=== PATIENT | female | born 1985 | race African-American/Black ===

== ENCOUNTER 2017-02-23 13:43 | Emergency (ER) | payer OTHER ==
[~2017-02-23 13:43] MED LIST: Iopamidol 370 76% 100 ML VIAL ONE
[2017-02-23] MEDS ORDERED: Acetaminophen 500 MG TAB ONE (14:56)
[2017-02-23 15:08] LABS: #Eosinphils 0.1 thou/uL (0.0-0.7); #Lymphocytes 2.7 thou/uL (1.20-3.40); #Monocytes 0.2 thou/uL (0.11-0.59); #Neutrophils 3.6 thou/uL (1.40-6.50); %Basophils 0.4 % (0.0-1.0); %Eosinophils 2.2 % (0.0-10.0); %Lymphocytes 39.9 % (21.0-51.0); %Monocytes 3.5 % (0.0-10.0); Hematocrit 39.4 % (36.0-47.0); Mean Platelet Volume 8.5 fL (7.4-10.4); Red Blood Cell (RBC) Count 4.77 mill/uL (4.20-5.40); White Blood Cell (WBC) Count 6.7 thou/uL (4.8-10.8)
[2017-02-23 15:26] LABS: ALT (SGPT) 58 U/L (8-55); AST (SGOT) 51 U/L (5-34); Alkaline Phosphatase 109 U/L (40-150); Anion Gap 13 mmol/L (10-20); BUN (Urea Nitrogen) 10 mg/dL (7.0-18.7); Bilirubin, Total 0.4 mg/dL (0.2-1.2); Calc. Creatinine Clearance 0 mL/min (70-130); Calcium 8.8 mg/dL (7.8-10.44); Carbon Dioxide 26 mmol/L (22-29); Chloride 108 mmol/L (98-107); Estimated GFR-MDRD Greater than 90; Globulin 2.7 g/dL (2.4-3.5); Lipase 41 U/L (8-78); Protein, Total 6.5 g/dL (6.0-8.3)
[2017-02-23 15:27] LABS: Troponin I Less than 0.010 ng/mL (< 0.028)
[2017-02-23 15:59] LABS: Bilirubin Negative (Negative); Blood, Urine Negative (Negative); Glucose, Urine (Dipstick) Negative (Negative); Ketone, Urine Trace mg/dL (Negative); Nitrite Positive (Negative); Protein, Urine (Dipstick) Trace mg/dL (Neg-Trace); Urobilinogen 0.2 mg/dL (0.2-1.0)
[2017-02-23 16:06] LABS: Bacteria/HPF 3+ HPF (None Seen)
--- NOTE | 2017-02-23 16:17 | CT ---
CT PULMONARY ANGIOGRAM WITH IV CONTRAST AND 3D POSTPROCESSING 02/23/17 HISTORY: Shortness of breath with posterior thoracic pleuritic pain. FINDINGS: No filling defects are seen in the contrast opacified pulmonary artery vasculature to suggest pulmon marquis embolism. The thoracic aorta is well opacified without aneurysmal dissection. No pleural or karlos cardial effusions are identified. No pneumothoraces, focal areas of consolidation or lung mass/pulmo nary nodules are seen. No acute osseous abnormalities are noted. There is fatty infiltration of the visualized portions of the liver. IMPRESSION: No CT evidence of pulmonary embolism. POS: [facility]
== END 2017-02-23 16:25 | disposition home or self-care (01) ==
LOC: SCSER 13:43
DX: M54.6 Pain in thoracic spine (principal); K76.0 Fatty (change of) liver, not elsewhere classified; E11.9 Type 2 diabetes mellitus without complications; I10 Essential (primary) hypertension; F31.9 Bipolar disorder, unspecified; F20.9 Schizophrenia, unspecified; F17.210 Nicotine dependence, cigarettes, uncomplicated; Z79.84 Long term (current) use of oral hypoglycemic drugs; Z79.899 Other long term (current) drug therapy
CPT/HCPCS: 71275; 80053; 81003; 81015; 82553; 83690; 84484; 85025; 87077; 87086; 87186; 93005

== ENCOUNTER 2017-03-30 18:34 | Emergency (ER) | payer OTHER | END 2017-03-30 19:22 | disposition home or self-care (01) | LOC: SCSER 18:34 | DX: K08.89 Other specified disorders of teeth and supporting structures (principal); E11.9 Type 2 diabetes mellitus without complications; I10 Essential (primary) hypertension; F31.9 Bipolar disorder, unspecified; F20.9 Schizophrenia, unspecified; F17.210 Nicotine dependence, cigarettes, uncomplicated; Z79.899 Other long term (current) drug therapy | CPT/HCPCS: 99406 ==

== ENCOUNTER 2017-07-30 20:23 | Emergency (ER) | payer OTHER | END 2017-07-30 20:45 | disposition home or self-care (01) | LOC: SCSER 20:23 | DX: L25.9 Unspecified contact dermatitis, unspecified cause (principal); E11.9 Type 2 diabetes mellitus without complications; I10 Essential (primary) hypertension; F41.9 Anxiety disorder, unspecified; F20.9 Schizophrenia, unspecified; F17.210 Nicotine dependence, cigarettes, uncomplicated; Z79.84 Long term (current) use of oral hypoglycemic drugs; Z79.899 Other long term (current) drug therapy | CPT/HCPCS: 99282 ==

== ENCOUNTER 2017-08-05 22:15 | Emergency (ER) | payer OTHER ==
[2017-08-05 23:22] LABS: Hemoglobin 12.9 g/dL (12.0-16.0); Mean Corpuscular HGB CONC 33.2 g/dL (32.0-36.0); Mean Corpuscular Hemoglobin 26.5 pg (27.0-31.0); Mean Platelet Volume 8.4 fL (7.4-10.4); Platelet Count 288 thou/uL (130-400); RBC Distribution Width 12.4 % (11.5-14.5); Red Blood Cell (RBC) Count 4.86 mill/uL (4.20-5.40); White Blood Cell (WBC) Count 8.7 thou/uL (4.8-10.8)
[2017-08-05 23:29] LABS: ALT (SGPT) 55 U/L (8-55); AST (SGOT) 22 U/L (5-34); Alkaline Phosphatase 130 U/L (40-150); Anion Gap 16 mmol/L (10-20); BUN (Urea Nitrogen) 10 mg/dL (7.0-18.7); Bilirubin, Total 0.3 mg/dL (0.2-1.2); Calc. Creatinine Clearance 0 mL/min (70-130); Calcium 9.5 mg/dL (7.8-10.44); Carbon Dioxide 23 mmol/L (22-29); Chloride 103 mmol/L (98-107); Estimated GFR-MDRD Greater than 90; Globulin 2.8 g/dL (2.4-3.5); Glucose 211 mg/dL (70-105); Protein, Total 6.8 g/dL (6.0-8.3); Sodium 138 mmol/L (136-145)
[2017-08-05 23:31] LABS: Band 1 % (5-11); Lymphocytes 21 % (21-51); MDiff Complete? YES; Monocytes 2 % (0-10); Neutrophil 76 % (42-75)
[2017-08-05 23:32] LABS: CKMB 0.7 ng/mL (0-6.6); Troponin I Less than 0.010 ng/mL (< 0.028)
== END 2017-08-06 00:30 | disposition home or self-care (01) ==
LOC: SCSER 22:15
DX: E11.65 Type 2 diabetes mellitus with hyperglycemia (principal); I10 Essential (primary) hypertension; F41.9 Anxiety disorder, unspecified; F20.9 Schizophrenia, unspecified; F17.210 Nicotine dependence, cigarettes, uncomplicated; Z71.6 Tobacco abuse counseling; Z79.84 Long term (current) use of oral hypoglycemic drugs; Z79.899 Other long term (current) drug therapy
CPT/HCPCS: 36416; 80053; 82010; 82553; 84484; 85025; 96360; 99406

== ENCOUNTER 2017-11-18 12:31 | Emergency (ER) | payer OTHER ==
[2017-11-18] MEDS ORDERED: Bacitracin Zinc 1 Packet ONE ×2 (13:36→13:38)
== END 2017-11-18 13:44 | disposition home or self-care (01) ==
LOC: SCSER 12:31
DX: B35.0 Tinea barbae and tinea capitis (principal); B35.4 Tinea corporis; L01.00 Impetigo, unspecified; E11.9 Type 2 diabetes mellitus without complications; I10 Essential (primary) hypertension; F41.9 Anxiety disorder, unspecified; F17.210 Nicotine dependence, cigarettes, uncomplicated; Z79.84 Long term (current) use of oral hypoglycemic drugs
CPT/HCPCS: 26010; 87070; 87205

== ENCOUNTER 2017-11-21 21:15 | Emergency (ER) | payer OTHER ==
[2017-11-21 22:16] LABS: Band 2 % (5-11); Eosinophils 1 % (0-10); Hemoglobin 13.7 g/dL (12.0-16.0); Lymphocytes 55 % (21-51); MDiff Complete? YES; Mean Corpuscular HGB CONC 32.1 g/dL (32.0-36.0); Mean Corpuscular Hemoglobin 25.6 pg (27.0-31.0); Mean Corpuscular Volume 79.7 fL (78.0-98.0); Mean Platelet Volume 9.2 fL (7.4-10.4); Monocytes 5 % (0-10); Neutrophil 35 % (42-75); PLT Morphology Comment Appears Adequate; Platelet Count 286 thou/uL (130-400); RBC Distribution Width 12.7 % (11.5-14.5); Reactive Lymphocytes 1 % (0-10); Red Blood Cell (RBC) Count 5.36 mill/uL (4.20-5.40); White Blood Cell (WBC) Count 8.1 thou/uL (4.8-10.8)
[2017-11-21 22:22] LABS: ALT (SGPT) 32 U/L (8-55); AST (SGOT) 21 U/L (5-34); Albumin 4.2 g/dL (3.5-5.0); Alkaline Phosphatase 113 U/L (40-150); Anion Gap 15 mmol/L (10-20); BUN (Urea Nitrogen) 10 mg/dL (7.0-18.7); Bilirubin, Total 0.3 mg/dL (0.2-1.2); CK (CPK) 67 U/L (29-168); Calc. Creatinine Clearance 0 mL/min (70-130); Calcium 9.7 mg/dL (7.8-10.44); Carbon Dioxide 25 mmol/L (22-29); Chloride 103 mmol/L (98-107); Estimated GFR-MDRD Greater than 90; Globulin 2.8 g/dL (2.4-3.5); Glucose 160 mg/dL (70-105); Potassium 3.5 mmol/L (3.5-5.1); Sodium 139 mmol/L (136-145)
[2017-11-21] MEDS ORDERED: Bacitracin Zinc Ointment 30 gm TUBE ONE (22:49)
[2017-11-21] MEDS ORDERED: Acyclovir 400 mg Tablet ONE (22:59)
[2017-11-21 23:20] LABS: Bilirubin Negative (Negative); Blood, Urine Negative (Negative); Clarity Clear (Clear); Glucose, Urine (Dipstick) Negative (Negative); Leukocyte Negative (Negative); Nitrite Negative (Negative); Pregnancy Test - Urine (BHCG) Negative (Negative); Pregu Control Background? CLEAR/WHITE (CLR/WHITE); Pregu Control Bar Appear? YES (CONTROL BAR); Protein, Urine (Dipstick) Negative (Neg-Trace); Urobilinogen 0.2 mg/dL (0.2-1.0); pH, Urine 6.5 (5.0-9.0)
[2017-11-24 22:20] LABS: Chlamydia by PCR Not Detected (NotDetected); GC by PCR Not Detected (NotDetected)
== END 2017-11-22 00:15 | disposition home or self-care (01) ==
LOC: SCSER 21:15
DX: L01.03 Bullous impetigo (principal); E11.9 Type 2 diabetes mellitus without complications; I10 Essential (primary) hypertension; F41.9 Anxiety disorder, unspecified; F20.9 Schizophrenia, unspecified; F17.210 Nicotine dependence, cigarettes, uncomplicated; Z79.899 Other long term (current) drug therapy; Z79.84 Long term (current) use of oral hypoglycemic drugs
CPT/HCPCS: 36415; 80053; 81003; 81025; 82550; 83605; 83735; 85025; 87040; 87070; 87205; 87480; 87491; 87510; 87591; 87660; 93005; 96360; 96361

== ENCOUNTER 2017-11-22 12:20 | Emergency (ER) | payer OTHER | END 2017-11-22 13:30 | disposition home or self-care (01) | LOC: SCSER 12:20 | DX: L01.03 Bullous impetigo (principal); E11.9 Type 2 diabetes mellitus without complications; I10 Essential (primary) hypertension; F41.9 Anxiety disorder, unspecified; F25.9 Schizoaffective disorder, unspecified; F17.210 Nicotine dependence, cigarettes, uncomplicated; Z79.899 Other long term (current) drug therapy; Z79.84 Long term (current) use of oral hypoglycemic drugs | CPT/HCPCS: 99282 ==

== ENCOUNTER 2018-01-12 08:12 | Emergency (ER) | payer OTHER | END 2018-01-12 09:14 | disposition home or self-care (01) | LOC: SCSER 08:12 | DX: L98.9 Disorder of the skin and subcutaneous tissue, unspecified (principal); E11.9 Type 2 diabetes mellitus without complications; I10 Essential (primary) hypertension; F41.9 Anxiety disorder, unspecified; F25.9 Schizoaffective disorder, unspecified; F17.210 Nicotine dependence, cigarettes, uncomplicated; Z79.899 Other long term (current) drug therapy; Z79.84 Long term (current) use of oral hypoglycemic drugs | CPT/HCPCS: 99282 ==

== ENCOUNTER 2018-03-26 04:41 | Emergency (ER) | payer OTHER ==
[2018-03-26] MEDS ORDERED: Acetaminophen 500 MG TAB ONE (05:07)
[2018-03-26] MEDS ORDERED: Ondansetron ODT 4 MG TAB ONE (05:16)
[2018-03-26 05:30] LABS: Pregnancy Test - Urine (BHCG) Negative (Negative); Pregu Control Background? CLEAR/WHITE (CLR/WHITE); Pregu Control Bar Appear? YES (CONTROL BAR); Specific Gravity 1.021 (1.002-1.036)
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
== END 2018-03-26 06:57 | disposition home or self-care (01) ==
LOC: SCSER 04:41
DX: S16.1XXA Strain of muscle, fascia and tendon at neck level, initial encounter (principal); S39.012A Strain of muscle, fascia and tendon of lower back, initial encounter; S20.219A Contusion of unspecified front wall of thorax, initial encounter; E11.9 Type 2 diabetes mellitus without complications; I10 Essential (primary) hypertension; F41.9 Anxiety disorder, unspecified; F17.210 Nicotine dependence, cigarettes, uncomplicated; Z79.899 Other long term (current) drug therapy; Z79.84 Long term (current) use of oral hypoglycemic drugs; V49.9XXA Car occupant (driver) (passenger) injured in unspecified traffic accident, initial encounter
CPT/HCPCS: 71046; 72125; 72131; 81025; 93005; Q0162

== ENCOUNTER 2018-03-28 08:07 | Emergency (ER) | payer OTHER ==
--- NOTE | 2018-03-28 09:16 | RAD ---
LEFT SHOULDER THREE VIEWS: Clinical history: Injury, pain. FINDINGS: There is no fracture or dislocation. IMPRESSION: No acute osseous abnormality of the left shoulder. POS: [facility]
== END 2018-03-28 09:58 | disposition home or self-care (01) ==
LOC: SCSER 08:07
DX: S16.1XXA Strain of muscle, fascia and tendon at neck level, initial encounter (principal); M25.512 Pain in left shoulder; E11.9 Type 2 diabetes mellitus without complications; I10 Essential (primary) hypertension; F41.9 Anxiety disorder, unspecified; F25.9 Schizoaffective disorder, unspecified; F17.210 Nicotine dependence, cigarettes, uncomplicated; Z79.899 Other long term (current) drug therapy; Z79.84 Long term (current) use of oral hypoglycemic drugs; V43.62XA Car passenger injured in collision with other type car in traffic accident, initial encounter

== ENCOUNTER 2018-05-01 22:23 | Emergency (ER) | payer OTHER ==
[2018-05-01 23:21] LABS: #Basophils 0.1 thou/uL (0.0-0.2); #Eosinphils 0.2 thou/uL (0.0-0.7); #Lymphocytes 3.7 thou/uL (1.20-3.40); #Monocytes 0.3 thou/uL (0.11-0.59); #Neutrophils 3.8 thou/uL (1.40-6.50); %Basophils 0.8 % (0.0-1.0); %Eosinophils 2.5 % (0.0-10.0); %Monocytes 3.7 % (0.0-10.0); Anisocytosis SLIGHT = 6-15 cells (100X) (0-5/hpf); Hemoglobin 11.6 g/dL (12.0-16.0); MDiff Complete? YES; Mean Corpuscular HGB CONC 32.7 g/dL (32.0-36.0); Mean Corpuscular Volume 76.2 fL (78.0-98.0); Mean Platelet Volume 9.7 fL (7.4-10.4); Platelet Count 212 thou/uL (130-400); RBC Distribution Width 13.1 % (11.5-14.5); Red Blood Cell (RBC) Count 4.64 mill/uL (4.20-5.40); White Blood Cell (WBC) Count 8.1 thou/uL (4.8-10.8)
[2018-05-01 23:30] LABS: ALT (SGPT) 24 U/L (8-55); AST (SGOT) 21 U/L (5-34); Albumin 3.7 g/dL (3.5-5.0); Alkaline Phosphatase 116 U/L (40-150); Anion Gap 16 mmol/L (10-20); BUN (Urea Nitrogen) 15 mg/dL (7.0-18.7); Bilirubin, Total 0.2 mg/dL (0.2-1.2); Calc. Creatinine Clearance 0 mL/min (70-130); Carbon Dioxide 24 mmol/L (22-29); Chloride 105 mmol/L (98-107); Estimated GFR-MDRD Greater than 90; Globulin 2.8 g/dL (2.4-3.5); Glucose 95 mg/dL (70-105); Lipase 44 U/L (8-78); Protein, Total 6.5 g/dL (6.0-8.3); Sodium 141 mmol/L (136-145)
--- NOTE | 2018-05-01 23:40 | RAD ---
CHEST TWO VIEWS: 05/01/2018 PROVIDED CLINICAL HISTORY: Shortness of breath. COMPARISON: 03/26/2018 FINDINGS: Evaluation is limited by patient body habitus. The cardiac silhouette remains enlarged. There is no focal consolidation, pleural fluid, or pneumothorax apparent. IMPRESSION: Cardiomegaly without evidence for an acute cardiopulmonary process. POS: [facility]
== END 2018-05-02 00:10 | disposition home or self-care (01) ==
LOC: SCSER 22:23
DX: R06.00 Dyspnea, unspecified (principal); R07.89 Other chest pain; D64.9 Anemia, unspecified; K04.4 Acute apical periodontitis of pulpal origin; E11.9 Type 2 diabetes mellitus without complications; I10 Essential (primary) hypertension; F20.9 Schizophrenia, unspecified; F17.210 Nicotine dependence, cigarettes, uncomplicated; Z79.84 Long term (current) use of oral hypoglycemic drugs; Z79.899 Other long term (current) drug therapy
CPT/HCPCS: 71046; 80053; 83690; 84484; 85025; 85379; 93005

== ENCOUNTER 2018-05-29 16:39 | Emergency (ER) | payer OTHER ==
[2018-05-29 17:25] LABS: Bilirubin Negative (Negative); Blood, Urine Moderate (Negative); Clarity Clear (Clear); Glucose, Urine (Dipstick) Negative (Negative); Leukocyte Trace (Negative); Nitrite Negative (Negative); Protein, Urine (Dipstick) Negative (Neg-Trace); Urobilinogen 0.2 mg/dL (0.2-1.0)
[2018-05-29 17:26] LABS: Pregnancy Test - Urine (BHCG) Negative (Negative); Pregu Control Background? CLEAR/WHITE (CLR/WHITE); Pregu Control Bar Appear? YES (CONTROL BAR)
[2018-05-29 17:38] LABS: RBC/HPF 0-3 HPF (0-3); WBC/HPF 0-3 HPF (0-3)
[2018-05-29 17:39] LABS: Bacteria/HPF 2+ HPF (None Seen)
[2018-05-30 20:54] LABS: Chlamydia by PCR Not Detected (NotDetected); GC by PCR Not Detected (NotDetected)
== END 2018-05-29 18:17 | disposition home or self-care (01) ==
LOC: SCSER 16:39
DX: N93.8 Other specified abnormal uterine and vaginal bleeding (principal); E11.9 Type 2 diabetes mellitus without complications; I10 Essential (primary) hypertension; F41.9 Anxiety disorder, unspecified; F25.9 Schizoaffective disorder, unspecified; F17.210 Nicotine dependence, cigarettes, uncomplicated; Z79.899 Other long term (current) drug therapy; Z79.84 Long term (current) use of oral hypoglycemic drugs
CPT/HCPCS: 81003; 81015; 81025; 87480; 87491; 87510; 87591; 87660; 99283

== ENCOUNTER 2018-10-16 20:46 | Inpatient (IN) | payer OTHER ==
[2018-10-16] MEDS ORDERED: Ketorolac Tromethamine 30 MG/ML VIAL ONE (21:36)
[2018-10-16 21:44] LABS: Bilirubin Negative (Negative); Blood, Urine Negative (Negative); Glucose, Urine (Dipstick) Negative (Negative); Leukocyte Negative (Negative); Nitrite Negative (Negative); Protein, Urine (Dipstick) Negative (Neg-Trace); Urobilinogen 0.2 mg/dL (0.2-1.0)
[2018-10-16 21:47] LABS: Clarity Slightly Cloudy (Clear)
[2018-10-16 21:48] LABS: Pregnancy Test - Urine (BHCG) Negative (Negative); Pregu Control Background? CLEAR/WHITE (CLR/WHITE); Pregu Control Bar Appear? YES (CONTROL BAR)
[2018-10-16 21:51] LABS: ALT (SGPT) 20 U/L (8-55); AST (SGOT) 12 U/L (5-34); Albumin 3.9 g/dL (3.5-5.0); Alkaline Phosphatase 126 U/L (40-150); Anion Gap 16 mmol/L (10-20); BUN (Urea Nitrogen) 5 mg/dL (7.0-18.7); Bilirubin, Total 0.4 mg/dL (0.2-1.2); Calc. Creatinine Clearance 0 mL/min (70-130); Calcium 9.3 mg/dL (7.8-10.44); Carbon Dioxide 23 mmol/L (22-29); Chloride 101 mmol/L (98-107); Estimated GFR-MDRD Greater than 90; Globulin 2.9 g/dL (2.4-3.5); Glucose 123 mg/dL (70-105); Lipase 26 U/L (8-78); Potassium 3.3 mmol/L (3.5-5.1); Protein, Total 6.8 g/dL (6.0-8.3); Sodium 137 mmol/L (136-145)
[2018-10-16 21:52] LABS: Hemoglobin 13.3 g/dL (12.0-16.0); Lymphocytes 13 % (21-51); MDiff Complete? YES; Mean Corpuscular HGB CONC 32.9 g/dL (32.0-36.0); Mean Corpuscular Hemoglobin 25.8 pg (27.0-31.0); Mean Corpuscular Volume 78.3 fL (78.0-98.0); Monocytes 7 % (0-10); Neutrophil 80 % (42-75); Platelet Count 237 thou/uL (130-400); RBC Distribution Width 12.6 % (11.5-14.5); Red Blood Cell (RBC) Count 5.16 mill/uL (4.20-5.40); White Blood Cell (WBC) Count 10.7 thou/uL (4.8-10.8)
[2018-10-16] MEDS ORDERED: Piperacillin/Tazobactam 3.375 GM VIAL ONE (22:31)
[2018-10-16] MEDS ORDERED: Sodium Chloride 0.9% 100 ML ONE (22:32)
--- NOTE | 2018-10-16 22:56 | CT ---
CT ABDOMEN AND PELVIS WITHOUT CONTRAST: 10/16/2018 HISTORY: Abdominal pain, which started this morning. COMPARISON: None. FINDINGS: The lung bases are clear. The liver is enlarged in craniocaudal dimensions, measuring 21 cm. The liver also demonstrates decre ased density, compared to the spleen, suggesting fatty infiltration. The spleen, pancreas, bilateral adrenal glands, kidneys, urinary bladder, and uterus demonstrate a gr ossly normal, nonenhanced CT appearance. Lack of intravenous contrast does limit sensitivity for ashley luation of the parenchymal organs. There is thickening in the region of the cecal apex, which is located in the midline of the mid pelvi s. There is a tubular structure present, likely related to the appendix with dilation of the proxima l portion of the appendix. These findings could be related to appendicitis, in the correct clinical scenario. However, given the significant thickening at the cecal apex, a mass in this region cannot be entirely excluded. No free intraperitoneal gas or free fluid is seen in the abdomen or pelvis. A fat-containing umbilical hernia is seen. There is a hypodense structure in the right adnexal region, difficult to adequately evaluate on this exam, measuring 2.7 cm. This may represent the patient's right ovary, with an associated ovarian cys t. IMPRESSION: 1. Inflammatory changes within the central pelvis, which are immediately adjacent to the cecal apex and adjacent to what appears to represent the appendix. The distal portion of the appendix does not appear dilated, but the proximal portion of the appendix does appear enlarged, with prominent cecal a pical thickening. In the correct clinical scenario, findings are likely related to appendicitis. 2. Mild hepatomegaly with fatty infiltration of the liver. 3. Fat-containing umbilical hernia, as well as ventral abdominal wall fat-containing hernia. The above findings were discussed with Dr. Rodriguez in the emergency department on 10/16/2018 at 222 2 hours. CODE CR POS: [facility]
[2018-10-17 01:26] LABS: Lactic Acid 2.1 mmol/L (0.5-2.2)
[2018-10-17] MEDS: Sodium Chloride 0.9% 1,000 ML IV SCH ×2 (01:33→06:11)
[2018-10-17] MEDS ORDERED: Acetaminophen 1,000 MG in Premix Bag 1 BAG IVPB PRN (02:08)
[2018-10-17] MEDS ORDERED: hydrALAZINE 20 MG/ML VIAL SLOW IVP PRN (02:09)
[2018-10-17] MEDS: Morphine 2 MG/ML SYRINGE SLOW IVP PRN ×4 (02:15→21:22)
[2018-10-17] MEDS ORDERED: Piperacillin/Tazobactam 3.375 GM in Sodium Chloride 0.9% 100 ML IVPB SCH (06:00)
[2018-10-17] MEDS ORDERED: Sodium Chloride 0.9% 1,000 ML IV SCH (08:32)
[2018-10-17 09:13] LABS: #Basophils 0.1 thou/uL (0.0-0.2); #Eosinphils 0.1 thou/uL (0.0-0.7); #Lymphocytes 1.9 thou/uL (1.20-3.40); #Monocytes 0.2 thou/uL (0.11-0.59); #Neutrophils 4.1 thou/uL (1.40-6.50); %Basophils 1.1 % (0.0-1.0); %Eosinophils 1.2 % (0.0-10.0); %Lymphocytes 29.9 % (21.0-51.0); %Monocytes 3.7 % (0.0-10.0); %Neutrophils 64.1 % (42.0-75.0); Hemoglobin 11.2 g/dL (12.0-16.0); Mean Corpuscular HGB CONC 33.2 g/dL (32.0-36.0); Mean Corpuscular Hemoglobin 26.6 pg (27.0-31.0); Mean Corpuscular Volume 80.2 fL (78.0-98.0); Mean Platelet Volume 7.8 fL (7.4-10.4); Platelet Count 194 thou/uL (130-400); RBC Distribution Width 12.6 % (11.5-14.5); Red Blood Cell (RBC) Count 4.22 mill/uL (4.20-5.40); White Blood Cell (WBC) Count 6.4 thou/uL (4.8-10.8)
--- NOTE | 2018-10-17 12:19 | CT ---
CT Abdomen Pelvis W Con History: [Abdominal pain] Comparison: CT abdomen and pelvis prior day Findings: Lung bases are clear. No pericardial effusion. Liver spleen pancreas adrenal glands are unremarkable as well as the gallbladder and kidneys. The aor toiliac contour is normal. Fat-containing umbilical and supraumbilical ventral hernias. Mild hepatomegaly with diffuse hepatic i nfiltration. No evidence for bowel obstruction. There is acute appendicitis involving the base of the appendix. No evidence for a macro perforation. Inflammatory ileocolic lymph nodes are present. There is thickening and inflammation of the cecal apex. Impression: Uncomplicated acute appendicitis of the appendiceal base. The appendix arises from the me dial aspect of the cecal apex and extends cranially.
[2018-10-17] MEDS ORDERED: Insulin Regular 300 UNITS/3 ML VIAL SC PRN (18:23)
[2018-10-17] MEDS ORDERED: Ondansetron PF 4 MG/2 ML Vial IVP PRN (18:23)
[2018-10-17] MEDS ORDERED: Dextrose 5% in Water 1,000 ML IV PRN (18:23)
[2018-10-17] MEDS ORDERED: Dextrose 50% Abboject 50 ML SYRINGE SLOW IVP PRN (18:23)
[2018-10-17] MEDS ORDERED: Morphine 2 MG/ML SYRINGE SLOW IVP PRN (18:23)
[2018-10-17] MEDS ORDERED: Potassium Chloride 20 MEQ in Lactated Ringer's 1,000 ML IV SCH (18:30)
[2018-10-17] MEDS ORDERED: ASENAPINE MALEATE 5 MG SL SCH (21:00)
[2018-10-17] MEDS ORDERED: Doxepin HCl 25 MG CAP PO SCH (21:00)
[2018-10-17] MEDS: Famotidine/PF 20 mg/2ml Vial SLOW IVP SCH (21:24)
[2018-10-18] MEDS: Ketorolac Tromethamine 30 MG/ML VIAL IVP SCH ×2 (00:24→07:41)
[2018-10-18 06:39] LABS: #Eosinphils 0.1 thou/uL (0.0-0.7); #Lymphocytes 1.6 thou/uL (1.20-3.40); #Monocytes 0.3 thou/uL (0.11-0.59); #Neutrophils 3.1 thou/uL (1.40-6.50); %Basophils 0.2 % (0.0-1.0); %Eosinophils 2.5 % (0.0-10.0); %Lymphocytes 31.5 % (21.0-51.0); %Neutrophils 59.8 % (42.0-75.0); Hemoglobin 11.1 g/dL (12.0-16.0); Mean Corpuscular HGB CONC 33.5 g/dL (32.0-36.0); Mean Corpuscular Hemoglobin 26.8 pg (27.0-31.0); Platelet Count 198 thou/uL (130-400); RBC Distribution Width 12.4 % (11.5-14.5); Red Blood Cell (RBC) Count 4.15 mill/uL (4.20-5.40); White Blood Cell (WBC) Count 5.2 thou/uL (4.8-10.8)
[2018-10-18 06:54] LABS: Anion Gap 11 mmol/L (10-20); BUN (Urea Nitrogen) 5 mg/dL (7.0-18.7); Calc. Creatinine Clearance 223 mL/min (70-130); Calcium 8.4 mg/dL (7.8-10.44); Carbon Dioxide 27 mmol/L (22-29); Chloride 103 mmol/L (98-107); Estimated GFR-MDRD Greater than 90; Glucose 97 mg/dL (70-105); Potassium 3.2 mmol/L (3.5-5.1); Sodium 138 mmol/L (136-145)
[2018-10-18] MEDS ORDERED: metFORMIN 500 MG TAB PO SCH (08:00)
[2018-10-18] MEDS ORDERED: Piperacillin/Tazobactam 3.375 GM in Sodium Chloride 0.9% 100 ML IVPB SCH (08:00)
[2018-10-18] MEDS ORDERED: clonazePAM 1 MG TAB PO SCH (09:00)
[2018-10-18] MEDS ORDERED: Atorvastatin Calcium 10 MG TAB PO SCH (09:00)
[2018-10-18] MEDS ORDERED: Hydrochlorothiazide 25 MG TAB PO SCH (09:00)
[2018-10-18] MEDS ORDERED: Potassium Chloride 20 MEQ in Lactated Ringer's 1,000 ML IV SCH (09:30)
[2018-10-18] MEDS: Famotidine/PF 20 mg/2ml Vial SLOW IVP SCH (09:32)
[2018-10-18 12:10] VITALS: BP 143/86; TEMP 98.1
--- NOTE | 2018-10-18 13:28 | HP ---
CHIEF COMPLAINT: Lower abdominal pain. HISTORY OF PRESENT ILLNESS: The patient is a morbidly obese black female. She has a BMI of 51. She presented to the emergency room in [facility] complaining of lower abdominal/periumbilical pain. This began on October 16. She presented late night to the hospital on October 17. In the emergency room, she was noted to be tachycardic with heart rate of about 130. She underwent evaluation in the emergency room per Dr. Vazquez. Laboratory studies revealed a normal white blood cell count of 10.7 with a hemoglobin of 13.3. She did have a left shift with 80% neutrophils and 13% lymphocytes. Her chemistry panel revealed mild electrolyte abnormalities with no evidence of acidosis. Liver function tests were normal. Her urinalysis was unremarkable and she had a negative test. CT scan was obtained. This was performed without any contrast and was difficult to interpret, but was felt to potentially reveal some thickening at the cecal cap with possible appendicitis involving the base of the appendix. Although, this is certainly an atypical presentation with an abnormal CT scan, normal white blood cell count, unusual tachycardia, and exam that was not typical for appendicitis (although this is very difficult because of her morbid obesity), I recommended admission to my service, on IV antibiotics while n.p.o. Repeat laboratory studies obtained the morning of October 17 revealed that her white blood cell count had dropped from 10.7 down to 6.4, and she had an entirely normal differential. She had remained afebrile. Her tachycardia was improved with her heart rate dropping down to the 90s, occasionally going up to 100. I elected to repeat the CAT scan with oral and IV contrast. This revealed possible appendicitis with inflammatory change around the mildly dilated appendix. The patient noted that she still had some lower abdominal pain. It is difficult to localize this, however, she has such a large abdomen and a large pannus that it is difficult to isolate with palpation, but there is some discomfort internally. PAST MEDICAL HISTORY: 1. Morbid obesity. 2. Diabetes mellitus. 3. Hypertension. 4. Schizophrenia. 5. Lupus. PAST SURGICAL HISTORY: Tonsillectomy. CURRENT MEDICATIONS: Include: 1. Atorvastatin. 2. Clonazepam. 3. Doxepin. 4. Hydrochlorothiazide. 5. Metformin. 6. Saphris (for schizophrenia). ALLERGIES: TO BACTRIM AND TEGRETOL. PERSONAL AND SOCIAL HISTORY: She is single with 3 children. She lives in [place]. Her primary care physician is Dr. Geovanni Odom. She smokes about a half pack of cigarettes per day. She does not drink alcohol. REVIEW OF SYSTEMS: Otherwise unremarkable. FAMILY HISTORY: Noncontributory. PHYSICAL EXAMINATION: VITAL SIGNS: She is afebrile, pulse is 95, blood pressure is 130/80. GENERAL: She is a well-developed, well-nourished, morbidly obese black female, resting in bed, in no acute distress. She is alert and oriented x3. HEAD, EYES, EARS, NOSE, AND THROAT: Unremarkable. NECK: Supple without mass or tenderness. LUNGS: Clear to auscultation throughout. CARDIAC: Regular rate and rhythm without murmur. ABDOMEN: Very obese. She has a large pannus. She has normoactive bowel sounds throughout. When her pannus is lifted, she does have some discomfort to deeper palpation more to the right side than the left side. EXTREMITIES: Unremarkable. ASSESSMENT: The patient with what appears to be relatively early appendicitis. Her pain both perceived and with examination is relatively minimal compared to typical appendicitis. Additionally, her white blood cell count is normal with a normal differential. In light of her multiple comorbidities, not the least of which is her massive obesity, at this point, I would recommend an attempt at nonoperative treatment of her appendicitis with a course of antibiotics. She has been started on Zosyn. We will continue on this. I would anticipate transitioning her to oral medication and discharge her home with a course of oral antibiotics. I told her that the overwhelming likelihood is that her appendicitis will resolve with course of antibiotics. There is a small chance of recurrence of appendicitis, but, again, the likelihood is that she will not have a recurrence and that she can be treated successfully in this fashion without surgery. I explained that while surgery can be done to treat appendicitis, surgery in light of her massive obesity substantially more challenging and potentially dangerous and this is part of the reason for which I would recommend an attempt at medical management rather than surgical management. She asked several questions regarding her planned course of treatment, all of which were answered. She will continue on a clear liquid diet with IV antibiotics for now. Job ID: [id number]
--- NOTE | 2018-10-18 13:57 | DIS ---
DATE OF ADMISSION: 10/17/2018 DATE OF DISCHARGE: 10/18/2018 ADMISSION DIAGNOSIS: Acute appendicitis. DISCHARGE DIAGNOSIS: Acute appendicitis. OPERATION/PROCEDURES PERFORMED: None. ADMISSION HISTORY: The patient is a morbidly obese 33-year-old black female. She presented with lower abdominal pain. CT scan revealed evidence potentially consistent with appendicitis involving the base of the appendix. She was admitted to my service for further evaluation and treatment. HOSPITAL COURSE: She was started and maintained on Zosyn for antibiotics. When I saw her, I could not tell from her CT scan whether she really had appendicitis or not. I therefore repeated her CT scan with oral and IV contrast. This did seem to confirm appendicitis involving the base of her appendix. It seemed to be relatively early/mild. She did not have an acute abdomen at the time of evaluation. It was also noted that her white blood cell count was normal with a normal differential. In light of her numerous comorbidities including her morbid obesity, hypertension, diabetes mellitus, and schizophrenia, I recommended a trial of conservative management with intravenous antibiotics. This morning when I saw her, she denies any discomfort at all. She has tolerated her liquid diet uneventfully. She has walked in her room, but not really walked out in the hallway. Her laboratory studies revealed persistently normal white blood cell count and normal differential. On abdominal examination today, she had no tenderness to palpation anywhere in her abdomen. She had remained afebrile. I would recommend continuing IV antibiotics until this afternoon. Unfortunately, she had spoken to her nurse and requested that she be discharged sooner. As I felt she was stable, I accommodated this discharge and discontinued her Zosyn and discharged her home on a course of Cipro and Flagyl for the next week. I have asked her to return to see me in a week for a followup examination. She was given my number and asked to call me if she has any problems or concerns in the interim. Job ID: [id number]
== END 2018-10-18 13:20 | disposition home or self-care (01) | DRG 394 ==
LOC: SCSER 20:46 → 3SE 10-17 00:20 → OBSVTOIN 10-17 00:42
PROVIDERS: ADMIT Specialist; ATTEND Specialist
DX: K35.80 Unspecified acute appendicitis (principal); Z68.43 Body mass index [BMI] 50.0-59.9, adult; E66.01 Morbid (severe) obesity due to excess calories; E11.9 Type 2 diabetes mellitus without complications; I10 Essential (primary) hypertension; F20.9 Schizophrenia, unspecified; Z79.899 Other long term (current) drug therapy; Z79.84 Long term (current) use of oral hypoglycemic drugs; Z88.8 Allergy status to other drugs, medicaments and biological substances; Z88.1 Allergy status to other antibiotic agents
CPT/HCPCS: 36415; 36416; 74176; 74177; 80048; 80053; 81003; 81025; 83605; 83690; 85025; J0131; J0360; J1885; J2270; J2543; J3480; J3490; J7120; S0028

== ENCOUNTER 2018-11-02 10:07 | Emergency (ER) | payer OTHER | END 2018-11-02 10:39 | disposition home or self-care (01) | LOC: SCSER 10:07 | DX: L03.113 Cellulitis of right upper limb (principal); E11.9 Type 2 diabetes mellitus without complications; I10 Essential (primary) hypertension; F41.9 Anxiety disorder, unspecified; F20.9 Schizophrenia, unspecified; F17.210 Nicotine dependence, cigarettes, uncomplicated | CPT/HCPCS: 99283 ==

== ENCOUNTER 2018-11-19 15:13 | Emergency (ER) | payer OTHER ==
[2018-11-19 15:45] LABS: Bilirubin Small (Negative); Blood, Urine Large (Negative); Clarity Hazy (Clear); Glucose, Urine (Dipstick) Negative (Negative); Leukocyte Small (Negative); Nitrite Positive (Negative); Protein, Urine (Dipstick) > or equal to 300 mg/dL (Neg-Trace)
[2018-11-19 15:47] LABS: Bacteria/HPF 3+ HPF (None Seen); Pregnancy Test - Urine (BHCG) Negative (Negative); RBC/HPF Greater than 50 HPF (0-3)
[2018-11-19 15:48] LABS: Pregu Control Background? CLEAR/WHITE (CLR/WHITE); Pregu Control Bar Appear? YES (CONTROL BAR)
[2018-11-19 15:52] LABS: Specific Gravity 1.028 (1.002-1.036)
== END 2018-11-19 16:10 | disposition home or self-care (01) ==
LOC: SCSER 15:13
DX: N39.0 Urinary tract infection, site not specified (principal); F41.9 Anxiety disorder, unspecified; F25.9 Schizoaffective disorder, unspecified; F17.210 Nicotine dependence, cigarettes, uncomplicated
CPT/HCPCS: 81003; 81015; 81025; 99283